=== PATIENT | male | born 2000 | race Two or more races ===

== ENCOUNTER 2022-01-21 03:13 | Emergency (ER) | payer MEDICAID ==
[~2022-01-21] VITALS: Ht 175.3 cm; Wt 118.2 kg
[2022-01-21] MEDS ORDERED: [UNRECOGNIZED DRUG - REMARK] PO (03:29)
[2022-01-21 03:43] VITALS: BP 142/90
== END 2022-01-21 04:52 | disposition home or self-care (01) ==
LOC: EMS 03:14
DX: R00.2 Palpitations (principal)
CPT/HCPCS: 93005; 99283